=== PATIENT | female | born 1975 | race Caucasian/White ===

== ENCOUNTER 2018-03-30 17:32 | Emergency (ER) | payer OTHER, MEDICAID, SELFPAY ==
--- NOTE | 2018-03-30 17:34 | DI.RAD.S_ITS ---
PROCEDURE: XR FOOT RT 2V INDICATIONS: pain TECHNIQUE: 2 views of the foot were acquired. COMPARISON: None. FINDINGS: Bones: No fractures or dislocations. No suspicious bony lesions. There is a small posterior calcaneal spur/enthesophyte at the site of the insertion of the Achilles tendon. Soft tissues: No tibiotalar joint effusion. No radiopaque foreign body identified. IMPRESSION: No acute osseous abnormality of the right foot. Small posterior calcaneal spur/enthesophyte as described above. Dictated by: Maximiliano Palmer M.D. on 03/30/2018 at 17:43 Approved by: Maximiliano Palmer M.D. on 03/30/2018 at 17:48
[2018-03-30 18:24] VITALS: BP 149/83; PULSE 71; RESP 18; TEMP 36.7; O2SAT 100
--- NOTE | 2018-03-30 18:27 | ED_ITS ---
HPI - Extremity Injury (Lower) <Ankita Whelan PA-C - Last Filed: 03/30/18 21:56> General Chief Complaint: Extremity Injury, Lower Stated Complaint: RT FOOT PAIN Time Seen by Provider: 03/30/18 18:20 Source: patient Mode of arrival: ambulatory Limitations: no limitations History of Present Illness HPI Narrative: This 42-year-old female complains of onset of right foot pain on Wednesday. She states it is a dull ache constantly, but much worse with weight-bearing. She states that she does not know of any specific injury though she does remember slipping down a couple of steps and catching herself prior to pain starting. She has been taking ibuprofen every 6 hr and also Tylenol without much pain relief. She states she has not noted any numbness but sensation not quite the same as normal in her toes. She indicates pain in the ball of her foot and middle toes. She denies any pain in the heel. No ankle pain. No other injury. Related Data Home Medications Medication Instructions Recorded Confirmed citalopram 20 mg PO QDAY #0 09/27/16 fluticasone-salmeterol [Advair 1 puff INH BID #0 09/27/16 Diskus] Previous Rx's Medication Instructions Recorded diphenoxylate-atropine 1 tab PO Q4HP PRN #14 tab 09/28/16 ondansetron [Zofran ODT] 4 mg SUBLINGUAL Q6HP PRN #20 odt 09/28/16 cyclobenzaprine 10 mg PO Q8HP PRN #20 tab 03/15/17 gabapentin [Neurontin] 300 mg PO Q8HP PRN #30 cap 03/15/17 Allergies Allergy/AdvReac Type Severity Reaction Status Date / Time No Known Drug Allergies Allergy Verified 03/30/18 17:40 Review of Systems <Ankita Whelan PA-C - Last Filed: 03/30/18 21:56> Review of Systems ROS Unobtainable: All systems reviewed & are unremarkable except as noted in HPI and below Exam <Ankita Whelan PA-C - Last Filed: 03/30/18 21:56> Narrative Exam Narrative: GENERAL APPEARANCE: Patient sitting comfortably, in no distress. LUNGS: Clear to auscultation bilaterally. HEART: Rate and rhythm regular without murmur, normal S1 and S2, no S3 or S4. MS: right foot no effusion. Exquisitely tender over the 2nd metatarsal head, a little bit less so over the 3rd and 4th. Also tender over the proximal 2nd and 3rd metatarsals. No tenderness over the great toes, 1st or 5th metatarsal. No tenderness over the arch of the foot, heel, or Achilles which is intact by palpation. She has full range of motion nonweightbearing, strength on dorsiflexion and plantar flexion 5/5 against resistance. Full range of motion of the right ankle without tenderness NEUROVASCULAR: Right foot sensation is grossly intact though subjectively decreased over the middle toes. it is difficult to palpate pulses on both feet, however all PT and PT pulses are easily audible with Doppler Initial Vital Signs Initial Vital Signs: Vital Signs Temperature 98.1 F 03/30/18 18:24 Pulse Rate 71 03/30/18 18:24 Respiratory Rate 18 03/30/18 18:24 Blood Pressure 149/83 H 03/30/18 18:24 Pulse Oximetry 100 03/30/18 18:24 <DO Michelle Campos Last Filed: 03/31/18 01:31> Initial Vital Signs Initial Vital Signs: Vital Signs Temperature 98.1 F 03/30/18 18:24 Pulse Rate 71 03/30/18 18:24 Respiratory Rate 18 03/30/18 18:24 Blood Pressure 149/83 H 03/30/18 18:24 Pulse Oximetry 100 03/30/18 18:24 Course <Ankita Whelan PA-C - Last Filed: 03/30/18 21:56> Additional Information: Patient is able to ambulate more comfortably in a walking boot. Advised exact source of pain is not clear, she certainly may have sprained and inflamed the metatarsal area when she slipped but somewhat atypical. Advised walking boot, rest, and she will f/u with PCP/podiatry. Orders Ordered: ED Orders 03/30/18 17:34 XR foot RT 2V Stat Vital Signs - 8 hr 03/30/18 18:24 Temperature 98.1 F Pulse Rate 71 Respiratory Rate 18 Blood Pressure [Right Arm] 149/83 H Pulse Oximetry 100 <DO Michelle Campos Last Filed: 03/31/18 01:31> Orders Ordered: ED Orders 03/30/18 17:34 XR foot RT 2V Stat Vital Signs - 8 hr 03/30/18 18:24 Temperature 98.1 F Pulse Rate 71 Respiratory Rate 18 Blood Pressure [Right Arm] 149/83 H Pulse Oximetry 100 MDM - Extremity Injury (Lower) <Ankita Whelan PA-C - Last Filed: 03/30/18 21:56> Imaging Data foot: Radiologist's impression: [address] [address] XRay Report Signed Patient: Hayde Juan [facility]#: [id number] : 1975Acct:[id number] Age/Sex: 42 / FDate of Service: 03/30/18 Loc: ED Accession Number: [id number] Procedure: XR foot RT 2V Ordering Provider: Isis De Leon D.O. PROCEDURE: XR FOOT RT 2V INDICATIONS: pain TECHNIQUE: 2 views of the foot were acquired. COMPARISON: None. FINDINGS: Bones: No fractures or dislocations. No suspicious bony lesions. There is a small posterior calcaneal spur/enthesophyte at the site of the insertion of the Achilles tendon. Soft tissues: No tibiotalar joint effusion. No radiopaque foreign body identified. IMPRESSION: No acute osseous abnormality of the right foot. Small posterior calcaneal spur/enthesophyte as described above. Dictated by: Maximiliano Palmer M.D. on 03/30/2018 at 17:43 Approved by: Maximiliano Palmer M.D. on 03/30/2018 at 17:48 Discharge Plan Departure Patient Disposition: Home Clinical Impression: Pain in metatarsus of right foot Discharge Date/Time: 03/30/18 19:20 Interventions: ED Discharge Assessment Last Done: 03/30/18 19:20 Instructions: DI for Metatarsalgia Activity Restrictions/Additional Instructions: There was no acute problem or fracture found on your xray today, but you have inflammation and pain at the ends of your metatarsal bones in the middle of your foot. This area may have been strained, but sometimes these areas can also developed pain and inflammation outside of specific trauma and just from overuse. Please continue ibuprofen as you are and add Tylenol as needed for pain. Try to rest the foot as much as possible and use the orthopedic boot that we gave you whenever you are bearing weight. Please follow-up with your PCP next week for recheck as you may need further imaging or testing. Return as we talked about if you have acutely worsening symptoms. You may also wish to see Podiatry (Dr. Mills or Dr. Anglin with [facility]) as they treat this type of pain frequently. You may need a referral from your primary care provider to be seen there depending upon your insurance (please let them know you were seen in the ED here and had xrays if you call for follow up). Prescriptions: No Action fluticasone-salmeterol [Advair Diskus] 500 MCG/50 MCG blister with device 1 puff INH BID Qty: 0 RF: 0 citalopram 20 MG tablet 20 mg PO QDAY Qty: 0 RF: 0 diphenoxylate-atropine 2.5 MG/0.025 MG tablet 1 tab PO Q4HP PRNQty: 14 RF: 0 ondansetron [Zofran ODT] 4 MG tablet,disintegrating 4 mg Sublingual Q6HP PRNQty: 20 RF: 0 cyclobenzaprine 10 MG tablet 10 mg PO Q8HP PRNQty: 20 RF: 0 gabapentin [Neurontin] 300 MG capsule 300 mg PO Q8HP PRNQty: 30 RF: 0 Referrals: Nabila Coleman [Provider Group] Dimitrios Anglin DPM [Physician] - <Pernell Chin DO - Last Filed: 03/31/18 01:31> Cosign ED Attending Tao Attestation: I was immediately available in the department for consultation. Documentation has been reviewed. I agree with assessment and plan.
== END 2018-03-30 19:20 | disposition home or self-care (01) ==
PROVIDERS: Emergency Provider Internal Medicine
DX: M89.8X7 Other specified disorders of bone, ankle and foot (principal)
CPT/HCPCS: 73620; 99283